=== PATIENT | female | born 1995 | race African-American/Black ===

== ENCOUNTER 2017-06-20 21:42 | Inpatient (IN) ==
[2017-06-20] MEDS ORDERED: BUTORPHANOL 2 MG/ML VIAL IV PRN (22:01)
[2017-06-20] MEDS ORDERED: LACTATED RINGERS 500 ML IV PRN (22:01)
[2017-06-20] MEDS ORDERED: ACETAMINOPHEN 325 MG TABLET PO PRN (22:01)
[2017-06-20] MEDS ORDERED: ONDANSETRON 4 MG/2 ML VIAL IV PRN (22:01)
[2017-06-20] MEDS ORDERED: MEPERIDINE 50 MG/1 ML VIAL IV PRN (22:01)
[2017-06-20] MEDS ORDERED: CITRIC ACID/SODIUM CITRATE 30 ML UDCUP PO ONE (22:02)
[2017-06-20] MEDS ORDERED: ePHEDrine 50 MG/ML AMP IV PRN (22:02)
[2017-06-20] MEDS ORDERED: FAMOTIDINE 20 MG/2 ML VIAL IV ONE (22:02)
[2017-06-20] MEDS ORDERED: fentaNYL 2 MCG/ROPIV 0.2% EPID 150 ML EPIDURAL SCH (22:03)
[2017-06-20] MEDS ORDERED: OXYTOCIN/LR 20 UNIT/1,000 ML BAG IV SCH (22:21)
[2017-06-20] MEDS: LACTATED RINGERS 1,000 ML IV SCH ×2 (22:23→23:05)
[2017-06-20 22:37] LABS: Basophils % 0.2 % (0.0-0.8); Eosinophils # 0.1 10*3/uL (0.0-0.87); Eosinophils % 0.5 % (0.00-10.9); Hematocrit 30.1 VOL% (35.7-47.0); Immature Granulocytes % 0.4 %; Immature Granulocytes Absolute 0.05 #; Lymphocytes # 2.6 10*3/uL (1.4-4.0); Lymphocytes % 23.1 % (21.3-54.2); Mean Corpuscular HGB Conc 33.2 GM/DL (32-36); Mean Corpuscular Hemoglobin 29 PG (27-34); Mean Corpuscular Volume 86.2 FL (87-102); Mean Platelet Volume 11.1 FL (9.6-12.0); Monocytes # 0.7 10*3/uL (0.11-0.8); Monocytes % 5.8 % (1.7-12.7); Neutrophils # 7.9 10*3/uL (1.4-7.4); Platelet Count 242 T/CUMM (130-400); Red Blood Count 3.49 MC/CUMM (3.8-5.5); Red Cell Distribution Width 13.6 % (9.3-17.3); White Blood Count 11.3 T/CUMM (4-12)
[2017-06-20] MEDS ORDERED: OXYTOCIN/LR 20 UNIT/1,000 ML BAG IV ONE (22:56)
[2017-06-21] MEDS ORDERED: BENZOCAINE 20%/MENTHOL 0.5% SPRAY 56 GM CAN TOP PRN (02:06)
[2017-06-21] MEDS ORDERED: WITCH HAZEL PADS 100/JAR TOP PRN (02:06)
[2017-06-21] MEDS ORDERED: RHO(D) IMMUNE GLOBULIN 300 MCG SYRINGE IM ONE (02:06)
[2017-06-21] MEDS ORDERED: LANOLIN 50% CREAM 0.3 OZ TUBE TOP PRN (02:06)
[2017-06-21] MEDS ORDERED: DIPH/TET/ACEL PERT BOOSTER VACCINE 0.5 ML VIAL IM ONE (02:06)
[2017-06-21] MEDS ORDERED: BISACODYL 10 MG SUPP RECTAL PRN (02:06)
[2017-06-21] MEDS ORDERED: oxyCODONE/ACETAMINOPHEN 5-325 MG TABLET PO PRN ×2 (02:06)
[2017-06-21] MEDS ORDERED: OXYTOCIN/LR 20 UNIT/1,000 ML BAG IV ONE (02:06)
[2017-06-21] MEDS ORDERED: HYDROCORTISONE 2.5% RECTAL CREAM 30 GM TUBE TOP PRN (02:06)
[2017-06-21] MEDS ORDERED: MEASLES/MUMPS/RUBELLA VACCINE 0.5 ML VIAL SUBCUT ONE (02:06)
[2017-06-21] MEDS ORDERED: diphenhydrAMINE 50 MG/1 ML VIAL IV PRN (02:38)
[2017-06-21] MEDS: IBUPROFEN 800 MG TABLET PO PRN ×2 (04:49→14:16)
[2017-06-21 05:26] LABS: Basophils % 0.2 % (0.0-0.8); Eosinophils % 0.2 % (0.00-10.9); Hemoglobin 9.2 GM/DL (12.0-16.0); Immature Granulocytes % 0.5 %; Immature Granulocytes Absolute 0.06 #; Lymphocytes # 2.3 10*3/uL (1.4-4.0); Lymphocytes % 18.7 % (21.3-54.2); Mean Corpuscular HGB Conc 32.9 GM/DL (32-36); Mean Corpuscular Hemoglobin 29 PG (27-34); Mean Platelet Volume 11.7 FL (9.6-12.0); Monocytes # 0.7 10*3/uL (0.11-0.8); Monocytes % 5.6 % (1.7-12.7); Neutrophils # 9.1 10*3/uL (1.4-7.4); Neutrophils % 74.8 % (38.7-73.9); Platelet Count 197 T/CUMM (130-400); Red Blood Count 3.22 MC/CUMM (3.8-5.5); Red Cell Distribution Width 13.3 % (9.3-17.3); White Blood Count 12.2 T/CUMM (4-12)
[2017-06-21] MEDS: DOCUSATE SODIUM 100 MG CAPSULE PO SCH ×2 (09:30→20:53)
[2017-06-22] MEDS: IBUPROFEN 800 MG TABLET PO PRN (04:02)
[2017-06-22 08:15] VITALS: BP 104/58
--- NOTE | 2017-06-22 08:34 | Anesthesia Post-Op ---
Anesthesia Post OP - Post Ansesthetic Evaluation Patient seen in post op: Yes Resp: within normal limits CV: within normal limits Mental: within normal limits Temp: within normal limits [id number]: within normal limits Nausea and Vomiting: within normal limits Pain: within normal limits
[2017-06-22] MEDS: DOCUSATE SODIUM 100 MG CAPSULE PO SCH (09:05)
--- NOTE | 2017-06-22 11:54 | OB/GYN History & Physical ---
History of Present Illness Chief complaint: Active labor History of present illness: Ms. Johnson is a 21 year old female 21-year-old 5 para 2 with 2 living children admitted in active labor. Patient's physical examination on admission was 5 cm 90% at a -1 station. This patient EDC was 07/05/2007 which put her at approximately 38 weeks gestation. This patient had been to labor and delivery on multiple occasions and it progressed from 2-3 cm to 5 cm. In light of these findings should be admitted and receive an epidural anesthetic and labor instructions were thoroughly given. The date of her admission was on 06/20/2017 and this is a late entry. heart tones at the time of admission were category 1, bag of wilder intact , no active bleeding, and will receive an epidural when appropriate Home Medications Medication Instructions Recorded Confirmed Type Acetamin/Codeine 300-30 Tab 1 tablet PO Q4-6H PRN MDD 6 TABS 06/20/17 06/20/17 History [Tylenol/Codeine #3] Ferrous Sulfate Tab [Feosol 325 mg PO DAILY MDD 325 06/20/17 06/20/17 History Original Tab] Pediatric Multivitamin No.42 1 tablet PO DAILY MDD one 06/20/17 06/20/17 History [Flintstones Complete Chew Tab] Allergies Allergy/AdvReac Type Severity Reaction Status Date / Time povidone-iodine AdvReac Verified 04/24/17 18:04 [From Betadine] soap [From Betadine] AdvReac RASH Verified 04/24/17 18:05 Medical,Surgical,& Family Hx - Medical History Reproductive: History of: Complication (ab) No history of: Abnormal Pap Smear, Breast Cancer, Endometriosis, Ectopic , Ovarian Cysts, Sexually Transmitted Disorders, Reproductive Cancer, Reproductive Problems Other: History of: Miscellaneous Medical Problems (vaginal bleeding) - Surgical History Reproductive Surgeries: Surgical HX of;: Dilation and Curettage (2014), Gynecologic Surgery Patient denies;: Breast Surgery, Section, Hysterectomy, Tubal Ligation - Family History Family History: Reports;: Family Cancer (pat gr father bone ca), Family Diabetes (dad), Family Hypertension (dad and mom) Denies;: Family Anesthesia Reaction, Family Heart Disease, Family Psychiatric Problems, Family Stroke - Social History Smoking Status: Never smoker Frequency of Alcohol Use: None Type of Drug Use: None Exam FOURTH MATE - Constitutional Vitals: Vital Signs Temp Pulse Resp BP Pulse Ox 06/22/17 10:00 20 06/22/17 08:15 20 06/22/17 08:00 97.8 F 68 20 104/58 100 06/22/17 07:00 20 06/22/17 06:00 16 06/22/17 05:00 16 06/22/17 04:00 97.3 F L 87 20 116/54 100 06/22/17 03:00 18 06/22/17 02:00 18 06/21/17 23:50 97 F L 60 20 113/66 100 06/21/17 19:40 97.1 F L 65 20 120/63 96 06/21/17 19:00 20 06/21/17 18:00 20 06/21/17 17:00 20 06/21/17 16:00 97.2 F L 69 20 104/47 99 06/21/17 15:00 20 06/21/17 14:00 20 General appearance: mild distress - Antepartum / Post Antepartum Exam Cervix - Dilatation: 5 cm Effacement: 80% Station: -2 station Rupture: Artificial rupture membranes clear fluid - Head Head exam: Present: normal inspection - Eye Eye exam: Present: EOMI Pupils: Present: JUWAN - ENT ENT exam: Present: normal exam - Neck Neck exam: Present: normal inspection - Respiratory Respiratory exam: Present: clear to auscultation bilaterally - Breast Breasts: as per HPI Menstruation: as per HPI - Cardiovascular Cardiovascular exam: Present: regular rate and rhythm - GI/Abdominal GI/Abdominal exam: Present: normal bowel sounds - Extremities Exam Extremities exam: Present: normal inspection - Back Exam Back exam: Present: normal inspection - Psychiatric Psychiatric exam: Present: normal affect - Skin Skin exam: Present: normal color Assessment and Plan (1) Active labor Status: Acute Assessment and plan: Anticipate Current Visit: Yes Results - Labs CBC & BMP: 06/21/17 04:16 Quality Measures - VTE Contraindication to Pharmacological VTE Prophylaxis: Clinical assessment deems Pt at low risk, no prophalaxis needed
--- NOTE | 2017-06-22 11:58 | Event Note ---
Delivery note which is a late entry on 06/22/2017. This patient delivered on 2016 Anaprox at 0 31 hours on 21 June. Stage I of labor admitted on 20 June at 2145 Artificial rupture membranes clear fluid Epidural anesthetic Patient did receive IV narcotics prior to receiving the epidural IV Pitocin External monitoring heart tones are category 1 This patient was completely dilated at 0 30 1 AM Stage II Nuchal cord loose Female delivered at 0 35 a.m. Cord blood and cord gas obtained Weight was 2948 g Apgars were 9 at 1 minute 9 at 5 minutes Nares and oral cavity was suctioned Stage III Deliver the placenta without complications 3 cord vessels Approximately 200 cc No lacerations were noted Mother stable
--- NOTE | 2017-06-22 12:01 | Discharge Summary ---
Hospital Course - Hospital Course Hospital Course: Patient admitted in active labor on June 20 at 2145. Subsequently progressed and became completely dilated on June 21 at 0 31 AM Delivery with an epidural anesthetic without any complications. Mother stable. Patient remained in hospital for 2 days Postoperative instructions were given and she is in full agreement Will return her office in 6 weeks and was scheduled for tubal ligation at that time. Diagnosis - Discharge Diagnosis (1) Active labor Status: Acute Discharge Plan - Discharge Data Condition at Discharge: Stable Discharge Diet: advance to your usual diet Activity: resume usual activities as tolerated Hygiene: may shower Weight Bearing at Discharge: weight bear as tolerated Contact your physician if you experience:: fever over 101, Bleeding - Discharge Medications New oxyCODONE/ACETAMINOPHEN 5-325 [Percocet 5-325] 1 tablet PO Q6H PRN #20 tablet PRN Reason: Pain Severe (8-10) Ibuprofen Tab [Motrin Tab] 800 mg PO Q6H PRN #30 tablet PRN Reason: Pain Moderate (4-7) Continue Ferrous Sulfate Tab [Feosol Original Tab] 325 mg PO DAILY #60 MDD 325 No Action Acetamin/Codeine 300-30 Tab [Tylenol/Codeine #3] 1 tablet PO Q4-6H PRN MDD 6 TABS PRN Reason: Pain Pediatric Multivitamin No.42 [Flintstones Complete Chew Tab] 1 tablet PO DAILY MDD one - Follow Up or Referral - Forms/Instructions Exam - Constitutional Vitals: Period Temp Pulse Resp BP Sys/[place] Pulse Ox Last 24 Hr 97 F-97.8 F 60-87 16-20 104-120/47-66 96-100 Discharge Results Procedures and tests throughout hospitalization: Pending Orders 06/20/17 21:49 Urinalysis Stat 06/20/17 22:01 Urinalysis Routine DS: Provider Date of admission: 06/20/17 22:01 Primary care physician: Poppy Fox MD Attending physician on admission: Poppy Fox MD Consults: 06/20/17 22:01 Consult to Anesthesiology [CONS] Routine Consulting Provider: Reason for Anesthesiology: Epidural Consult Comment: Epidural for pain managment 06/21/17 02:07 Consult to Mobile Equipment Servicer [CONS] Routine Consult Mobile Equipment Servicer: Breast Feeding Discharging clinician: Poppy Fox MD
== END 2017-06-22 14:15 | disposition home or self-care (01) | DRG 560 ==
LOC: N.LDOUT 21:42 → N.LD 21:45 → N.OB 06-21 12:45
PROVIDERS: ADMIT Obstetrics & Gynecology; ATTEND Obstetrics & Gynecology